=== PATIENT | male | born 1970 | race Caucasian/White ===

== ENCOUNTER 2023-01-10 20:32 | Emergency (ER) | payer BC, MEDICAID, SELFPAY ==
[2023-01-10 20:36] VITALS: BP 104/73; PULSE 105; RESP 18; TEMP 36.4; O2SAT 99; BMI 18.3
--- NOTE | 2023-01-10 21:42 | CTR_ITS ---
PROCEDURE INFORMATION: Exam: CT Head Without Contrast Exam date and time: 01/10/2023 10:01 PM Age: 53 years old Clinical indication: Pain; Headache not specified; Additional info: Headahe HX of bleed TECHNIQUE: Imaging protocol: Computed tomography of the head without contrast. Radiation optimization: All CT scans at this facility use at least one of these dose optimization techniques: automated exposure control; mA and/or kV adjustment per patient size (includes targeted exams where dose is matched to clinical indication); or iterative reconstruction. REPORTING DATA: Count of CT and Cardiac NM exams in prior 12 months: This patient has received 0 known CTs and 0 known cardiac nuclear medicine studies in the 12 months prior to the current study. COMPARISON: No relevant prior studies available. RADIATION DOSE METRICS: Total DLP (mGy-cm): 1269.78 FINDINGS: Brain: Normal. No hemorrhage. Unremarkable white matter. No mass effect. Cerebral ventricles: No ventriculomegaly. Paranasal sinuses: Visualized sinuses are unremarkable. No fluid levels. Mastoid air cells: Visualized mastoid air cells are well aerated. Bones/joints: Unremarkable. No acute fracture. Soft tissues: Unremarkable. CT/CT head wo con* [id number] IMPRESSION: No acute intracranial abnormality.
--- NOTE | 2023-01-10 21:42 | XRR_ITS ---
PROCEDURE INFORMATION: Exam: XR Chest Exam date and time: 01/10/2023 10:00 PM Age: 53 years old Clinical indication: Pain; Chest pressure; Additional info: Cp TECHNIQUE: Imaging protocol: Radiologic exam of the chest. Views: 1 view. COMPARISON: No relevant prior studies available. FINDINGS: Lungs: Unremarkable. No consolidation. Pleural spaces: Unremarkable. No pleural effusion. No pneumothorax. Heart/Mediastinum: Unremarkable. No cardiomegaly. Bones/joints: Unremarkable. XR/XR chest 1V portable [id number] IMPRESSION: No acute findings.
--- NOTE | 2023-01-10 21:42 | ECG_ITS ---
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 Measurements Intervals [place] Rate: 80 P: 62 MS: 162 QRS: 63 QRSD: 105 T: 77 QT: 394 QTc: 457 Interpretive Statements SINUS RHYTHM POSSIBLE INFERIOR MYOCARDIAL INFARCTION , PROBABLY OLD [30 ms Q WAVE IN II/aVF] Compared to ECG 07/06/2015 12:25:45 Myocardial infarct finding now present Left ventricular hypertrophy no longer present ST (T wave) deviation no longer present Electronically Signed On 01-10-2023 22:35:14 CDT by Wicho Schilling M.D. [email or web address] [email or web address] [email or web address] st[email or web address].Quora/store/OM/[id number]
[2023-01-10 21:55] LABS: Basophils # 0.1 10^3/uL (0.0-0.1); Basophils % 0.8 %; Eosinophils % 0.4 %; Hematocrit 33.9 % (42.0-52.0); Hemoglobin 11.3 g/dL (11.7-16.6); Lymphocytes # 2.8 10^3/uL (0.8-4.8); Lymphocytes % 30.3 %; Mean Corpuscular HGB Conc 33.3 g/dL (30.0-36.0); Mean Corpuscular Volume 102.1 fl (80-94); Mean Platelet Volume 12.9 fL (7.4-10.4); Monocytes # 0.8 10^3/uL (0.2-0.9); Monocytes % 8.7 %; Neutrophils % 59.3 %; Nucleated Red Blood Cells % 0 %; Platelet Count 123 10^3/cmm (130-400); Red Blood Count 3.32 10^6/uL (4.1-5.3); Red Cell Distribution Width 13.1 % (12.1-15.1); White Blood Count 9.3 10^3/uL (4.0-10.0)
[2023-01-10 21:56] VITALS: BP 108/70; PULSE 85; RESP 16; O2SAT 98
[2023-01-10 22:13] LABS: Troponin(5th) Baseline 6 ng/L (0-15)
[2023-01-10 22:29] LABS: Add Urine Microscopic? NO; Charge for UA Resulting for Rev
[2023-01-10 22:46] LABS: INR 0.97 (0.8-1.2)
[2023-01-10 22:51] LABS: Bilirubin Urine Neg (Negative); Blood Urine Neg (Negative); Glucose Urine UA Norm (Normal); Ketones Urine Negative (Negative); Leukocyte Esterase Urine Negative (Negative); Nitrate Urine Negative (Negative); Protein Urine Neg (Negative); Specific Gravity, Urine 1.005 (1.005-1.030); Urine Appearance Clear (CLEAR); Urine Color Colorless (Yellow); Urobilinogen Urine Neg (Negative); pH Urine 5 (5-7)
[2023-01-10 22:58] LABS: Alcohol Level 243 mg/dL (0-10); NT Pro B Type Natriuretic Pept 294 pg/mL (0-125)
[2023-01-10 23:06] VITALS: BP 107/81; PULSE 87; RESP 18; O2SAT 97
--- NOTE | 2023-01-10 23:42 | ECG_ITS ---
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 Measurements Intervals [place] Rate: 91 P: 62 MN: 156 QRS: 56 QRSD: 101 T: 78 QT: 359 QTc: 444 Interpretive Statements SINUS RHYTHM POSSIBLE LEFT ATRIAL ENLARGEMENT [-0.1mV P-WAVE IN V1/V2] POSSIBLE INFERIOR MYOCARDIAL INFARCTION , PROBABLY OLD [30 ms Q WAVE IN II/aVF] Compared to ECG 07/06/2015 12:25:45 Myocardial infarct finding now present Left ventricular hypertrophy no longer present ST (T wave) deviation no longer present Electronically Signed On 01-11-2023 11:32:39 CDT by Wicho Schilling M.D. [id number] f
[2023-01-10 23:57] LABS: Alanine Aminotransferase 47 U/L (0-41); Alkaline Phosphatase 269 U/L (40-130); Aspartate Amino Transferase 131 U/L (0-40); Blood Urea Nitrogen 4 mg/dL (6-20); Calcium 7.9 mg/dL (8.5-10.5); Carbon Dioxide 19 mmol/L (22-29); Chloride 102 mmol/L (98-107); Globulin 2.7 g/dL (1.3-4.6); Glomerular Filtration Rate 173.9 mL/min (90-130); Glucose 83 mg/dL (65-115); Osmolality Calculated 282 mOsm/kg (285-295); Sodium 138 mmol/L (136-145); Total Bilirubin 0.9 mg/dL (0.15-1.2); Total Protein 5.7 g/dL (6.6-8.7)
[2023-01-11 00:14] LABS: Anion Gap 20.4 (5-19); Potassium 3.4 mmol/L (3.5-5.1)
[2023-01-11 00:33] VITALS: BP 110/83; PULSE 82; RESP 19; O2SAT 100
[2023-01-11 00:33] LABS: Troponin 5 2HR Delta 0 ABS# (0-10)
--- NOTE | 2023-01-12 09:52 | ED_ITS ---
HPI - Chest Pain General: Chief Complaint: Chest Pain Stated Complaint: back pain, n/v Time Seen by Provider: 01/10/23 21:28 Source: patient History of Present Illness: 53 yo male with a history of alcohol use, and evidently a leaky heart valve presents with multiple symptoms. These include chest discomfort, sob, nausea, vomiting, chronic back pain, and lower extremity edema. He has been to ERs in [place] and [place] with similar complaints. He also complains of a headache, and evidently has a history of a brain bleed . MD complaint: chest pain Pertinent past history: other Onset (ago): week(s) Timing of current episode: episodic Prior episodes: Yes Onset: during rest Pain location: other Pain radiation: other Quality: aching Relieving factors: nothing Exacerbating factors: nothing Associated symptoms: Reports abdominal pain, dyspnea, nausea and vomiting; Deny fever(s) or palpitations Review of Systems Const: Denies: fever(s) Eyes: Denies: change in vision ENMT: Denies: throat pain Card: Reports: chest pain; Denies: palpitations Resp: Reports: dyspnea; Denies: productive cough, non-productive cough or wheezing GI: Reports: abdominal pain, nausea and vomiting; Denies: diarrhea or hematochezia Skin/Breast: Denies: rash Neuro: Reports: headache(s); Denies: weakness in extremities, dizziness or confusion Physical Exam Const: COMMON NORMALS: no acute distress GENERAL APPEARANCE: cooperative; not ill appearing and not frail appearing HENMT: COMMON NORMALS: normocephalic, atraumatic and Normal external nose present HEAD & SCALP: normocephalic and atraumatic FACE & SINUS: normal facial exam and face symmetric NOSE: Normal external nose present Eye: COMMON NORMALS: Equal, round and reactive pupils present and EOMs intact bilaterally PUPIL: Yes Equal, round and reactive pupils present Neck/C-Spine: GENERAL: Yes trachea midline Chest: CHEST: Yes Symmetrical chest wall rise Resp: COMMON NORMALS: normal respiratory effort, No retractions, No use of accessory muscles and clear to auscultation bilaterally AUSCULTATION: clear to auscultation bilaterally Cardio: COMMON NORMALS: regular rate and regular rhythm RATE: regular rate RHYTHM: regular rhythm GI: COMMON NORMALS: Normal to inspection, nondistended, normoactive bowel sounds present Extremity: GENERAL: Yes edema (1+) Neuro: JLOIE COMA SCALE: document GCS findings [place] coma scale eye opening: Spontaneous Jolie coma scale verbal response: Orientated Jolie coma scale motor response: Obey commands Jolie coma scale total score: 15 SPEECH: abnormal speech Details: slurred SENSORY EXAM: Yes extremities (intact) Psych: COMMON NORMALS: speech normal SPEECH: Yes normal speech Skin: COMMON NORMALS: no rashes or lesions noted GENERAL SKIN EXAM: no rashes or lesions noted Course Vital Signs: Vital signs: Vital Signs Temperature 97.5 F L 01/10/23 20:36 Pulse Rate 82 01/11/23 00:33 Respiratory Rate 19 H 01/11/23 00:33 Blood Pressure 110/83 01/11/23 00:33 Pulse Oximetry 100 01/11/23 00:33 Oxygen Delivery Me thod 01/10/23 23:06 MDM - Chest Pain Medical Decision Making This patient is intoxicated on alcohol, although mostly functional. I supect most of these chronic, non-acute problems are related to alcoholic liver disease as opposed to an acute problem. Head CT is performed because of his complain of headache with history of intr acranial hemorrhage. It is negative. Is EKG is not remarkable. His troponins remain negative. His BNP is not elevated. Chest X-ray is not acute. Is bicarbonate level is low indicating dehydration, likely from alcohol use. Renal function is normal. Urinanalysis is negative. His alcohol level was 243 which is significant. He was counseled on mild thrombocytopenia, hypoalbuminemia likely related to alcohol use. He was encouraged to not drink alcohol, as this is likely the source of his lower extremity edema. I suspect this counseling will be lost on him. He was encouraged to follow up with his physician in [place] related to his chronic problems. For the lower extremity edema, he'll be placed on lasix. He was encouraged to use compression stockings. As his potassium is already mildly low, we will supplement potassium with the furosemide. Lab Data 01/10/23 21:35 01/10/23 23:32 Radiology Impressions Chest X-Ray 01/10/23 21:42 IMPRESSION: No acute findings. Head CT 01/10/23 21:42 IMPRESSION: No acute intracranial abnormality. Laboratory Results WBC 9.3 10^3/uL (4.0-10.0) 01/10/23 21:35 RBC 3.32 10^6/uL (4.1-5.3) L 01/10/23 21: Hgb 11.3 g/dL (11.7-16.6) L 01/10/23 21: Hct 33.9 % (42.0-52.0) L 01/10/23 21: MCV 102.1 fl (80-94) H 01/10/23 21: MCH 34.0 pg (28.0-34.0) 01/10/23 21: MCHC 33.3 g/dL (30.0-36.0) 01/10/23 21: RDW 13.1 % (12.1-15.1) 01/10/23: Plt Count 123 10^3/cmm (130-400) L 01/10/23 21: MPV 12.9 fL (7.4-10.4) H 01/10/23 21: Neut % (Auto) 59.3 % 01/10/23 21: Lymph % (Auto) 30.3 % 01/10/23 21:35 [place] % (Auto) 8.7 % 01/10/23 21: Eos % (Auto) 0.4 % 01/10/23 21: Baso % (Auto) 0.8 % 01/10/23: Neut # (Auto) 5.50 10^3/uL (1.8-7.7) 01/10/23 21: Lymph # (Auto) 2.8 10^3/uL (0.8-4.8) 01/10/23 21: [place] # (Auto) 0.8 10^3/uL (0.2-0.9) 01/10/23 21: Eos # (Auto) 0.0 10^3/uL (0.0-0.8) 01/10/23 21: Baso # (Auto) 0.1 10^3/uL (0.0-0.1) 01/10/23 21: Nucleated RBC % (auto) 0 % 01/10/23 21: Nucleated RBCs # 0.0 /100WBC 01/10/23 21: PT 13.20 SECONDS (12.1-14.9) 01/10/23 22:22 INR 0.97 (0.8-1.2) 01/10/23 22:22 Sodium 138 mmol/L (136-145) 01/10/23 23:32 Potassium 3.4 mmol/L (3.5-5.1) L 01/10/23 23:32 Chloride 102 mmol/L (98-107) 01/10/23 23:32 Carbon Dioxide 19 mmol/L (22-29) L 01/10/23 23:32 Anion Gap 20.4 (5-19) H 01/10/23 23:32 BUN 4 mg/dL (6-20) L 01/10/23 23:32 Creatinine 0.5 mg/dL (0.7-1.2) L 01/10/23 23:32 GFR Calculation 173.9 mL/min (90-130) H 01/10/23 23: Glucose 83 mg/dL (65-115) 01/10/23 23:32 Calculated Osmolality 282 mOsm/kg (285-295) L 01/10/23 23: Calcium 7.9 mg/dL (8.5-10.5) L 01/10/23 23:32 Total Bilirubin 0.9 mg/dL (0.15-1.2) 01/10/23 23:32 AST 131 U/L (0-40) H 01/10/23 23:32 ALT 47 U/L (0-41) H 01/10/23 23:32 Alkaline Phosphatase 269 U/L (40-130) H 01/10/23 23:32 Troponin T Baseline 6 ng/L (0-15) 01/10/23 21:35 Troponin T 120 Minute 6.00 ng/L (0-15) 01/10/23 23:32 Delta Troponin T 0 ABS# (0-10) 01/10/23 23:32 NT-Pro-B Natriuret Pep 294 pg/mL (0-125) H 01/10/23 22:22 Total Protein 5.7 g/dL (6.6-8.7) L 01/10/23 23:32 Albumin 3.0 g/dL (3.5-5.2) L 01/10/23 23:32 Globulin 2.7 g/dL (1.3-4.6) 01/10/23 23:32 Urine Color Colorless (Yellow) 01/10/23 22:22 Urine Appearance Clear (CLEAR) 01/10/23 22:22 Urine pH 5 (5-7) 01/10/23 22:22 Ur Specific [place] 1.005 (1.005-1.030) 01/10/23 22:22 Urine Protein Neg (Negative) 01/10/23 22:22 Urine Glucose (UA) Norm (Normal) 01/10/23 22:22 Urine Ketones Negative (Negative) 01/10/23 22:22 Urine Blood Neg (Negative) 01/10/23 22:22 Urine Nitrate Negative (Negative) 01/10/23 22:22 Urine Bilirubin Neg (Negative) 01/10/23 22:22 Urine Urobilinogen Neg mg/dL (Negative) 01/10/23 22:22 Ur Leukocyte Esterase Negative (Negative) 01/10/23 22:22 Ethyl Alcohol 243 mg/dL (0-10) H 01/10/23 22:22 Discharge Plan Discharge Patient Disposition: Home Clinical Impression: Hypoalbuminemia, Thrombocytopenia Condition: Stable Prescriptions: New Lasix 20 mg tablet 20 mg PO DAILY Qty: 30 0RF potassium chloride 20 mEq tablet extended release 20 meq PO DAILY Qty: 30 0RF Discharge Orders: Discharge ED (Routine); Ordered 01/11/23 Ordered By: Nikhil Clifton Referrals: Briana Blankenship NP [Primary Care Provider] - 4-7 days Activity Restrictions/Additional Instructions: Return for fever, worsening mental status, shortness of breath, other concerning symptoms. See your doctor this week. Medication as directed. Coding Level of Care Code ED [employer] Custodian for Ifeanyi Perez
== END 2023-01-11 00:34 | disposition home or self-care (01) ==
PROVIDERS: Emergency Provider Emergency Medicine; PCP Nurse Practitioner Family
DX: E88.09 Other disorders of plasma-protein metabolism, not elsewhere classified (principal); D69.6 Thrombocytopenia, unspecified
CPT/HCPCS: 70450; 71045; 80053; 80307; 81003; 83880; 84484; 85025; 85610; 93005; 99285

== ENCOUNTER 2023-02-25 08:53 | Outpatient (CLI) | payer BC, MEDICAID, SELFPAY ==
--- NOTE | 2023-02-25 | CT_ITS ---
WS: [id number] CT CHEST TECHNIQUE: Noncontrast CT of the chest with coronal and sagittal reformatted images. CLINICAL INFORMATION: UNEXPLAINED WEIGHT LOSS, LOWER EXT EDEMA COMPARISON: None. DLP: 788.[address] scans at [facility] use at least one of these dose optimization techniques: automated e xposure control; mA and/or kV adjustment per patient size (includes targeted exams where dose is matc hed to clinical indication); or iterative reconstruction. FINDINGS: Lungs are well aerated. Slight fibrosis in the lung apices. No focal pneumonia or pleural f luid. Subsegmental atelectasis LEFT lower lobe. Normal caliber thoracic aorta. Vascular calcification. Coronary calcification. No mediastinal or senthil r lymphadenopathy. No axillary lymphadenopathy. Adrenal glands are normal. Small amount of perihepatic ascites. LEFT corrina al cysts which appear hemorrhagic. Small esophageal hiatal hernia. Normal visualized thoracic spine. CT/CT chest wo con [id number] IMPRESSION: No acute chest findings.
--- NOTE | 2023-02-25 09:04 | USCV_ITS ---
Jus Trujillo Age: 53 Gender: M : 1970 Exam Date: 02/25/2023 09:18 Ordering Phys: Briana Blankenship NP Technologist: [place] [facility] [place]: cp BP: 140 / 80 HR: 62 Rhythm: Sinus Technical Quality: Adequate MEASUREMENTS (Male / Female) Normal Values 2D ECHO LV Diastolic Diameter PLAX 4.3 cm 4.2 - 5.9 / 3.9 - 5.3 cm LV Systolic Diameter PLAX 2.8 cm IVS Diastolic Thickness 1.1 cm 0.6 - 1.0 / 0.6 - 0.9 cm IVS Systolic Thickness 1.4 cm LVPW Diastolic Thickness 1.1 cm 0.6 - 1.0 / 0.6 - 0.9 cm LVPW Systolic Thickness 1.8 cm LVOT Diameter 2.0 cm LV Ejection Fraction 2D Teich 62.5 % LV Ejection Fraction MOD 2C 77.3 % LV Ejection Fraction 2C AL 77.0 % LA Diameter 3.8 cm Aorta at Sinotubular Diameter 3.7 cm IVC Diameter 0.9 cm M-MODE Aortic Annulus Diameter 4.3 cm LA Ao Ratio MM 0.9 MV E Point Septal Separation 0.5 cm DOPPLER AV Peak Velocity 111.0 cm/s LVOT Peak Velocity 101.0 cm/s AV Area Cont Eq vti 3.3 cm squared AV Area Cont Eq pk 2.9 cm squared MV Area PHT 5.0 cm squared Mitral E to A Ratio 1.6 MV E' Velocity 65.4 cm/s Mitral E to MV E' Ratio 11.1 Mitral E to LV E' Lateral Ratio 13.7 Mitral E to LV E' Septal Ratio 9.4 TR Peak Velocity 215.0 cm/s TR Peak Gradient 18.5 mmHg TV Peak E Velocity 105.0 cm/s Right Atrial Pressure 3.0 mmHg Pulmonary Artery Systolic Pressu 21.5 mmHg RV Acceleration Time 0.2 s FINDINGS Left Ventricle Left ventricle is normal in size. LV systolic function is normal with EF of 55 to 60%. No regional wall motion abnormalities are seen. Right Ventricle Normal in size and function Right Atrium Normal in size Left Atrium Normal in size Mitral Valve Structurally normal mitral valve. Aortic Valve Structurally normal aortic valve. No significant stenosis or regurgitation seen. Tricuspid Valve Mild tricuspid regurgitation. Pulmonary artery systolic pressure is normal. Pulmonic Valve Not well-visualized. Pericardium Normal Aorta Mildly dilated ascending aorta IVC Appears to be normal CONCLUSIONS LV systolic function is normal with EF of 55 to 60%. Mild tricuspid regurgitation Mildly dilated ascending aorta. No comparison studies are available Wicho Schilling MD (Electronically Signed) Final Date: 06 Mar 2023 13:58 S
--- NOTE | 2023-02-25 09:05 | CT_ITS ---
WS: [id number] CT ABDOMEN PELVIS TECHNIQUE: Noncontrast CT of the abdomen and contrast-enhanced CT of the abdomen and pelvis with tamera nal and sagittal reformatted images. CLINICAL INFORMATION: ABNORMAL LEVELS OF OTHER SERUM ENZYMES COMPARISON: Ultrasound 2015 DLP: 788.[address] scans at [facility] use at least one of these dose optimization techniques: automated e xposure control; mA and/or kV adjustment per patient size (includes targeted exams where dose is matc hed to clinical indication); or iterative reconstruction. FINDINGS:Ill-defined eccentric soft tissue thickening with luminal narrowing involving the distal sto mach in the antrum and pylorus. Wall thickening with associated calcifications. Findings nonspecific but neoplasm not excluded and recommend further evaluation with endoscopy. Mild diffuse fatty infiltration liver. A few tiny hepatic cysts. Small amount of perihepatic ascites. Normal spleen. Small esophageal hiatal hernia. Slight atelectasis in the lung bases. Normal pancreat ic parenchymal enhancement. Adrenal glands are normal. Normal portal vein and splenic vein. Tiny gall bladder wall polyp measuring 5 mm. This can be followed up with ultrasound. Normal caliber abdominal aorta. Celiac and SMA are patent. Adrenal glands are normal. No hydronephros is in either kidney. Numerous bilateral renal cysts some appear proteinaceous or hemorrhagic. Large L EFT lower pole renal cyst measuring 5.2 CM. Renal cysts progressed compared to 2015 ultrasound Small amount of ascites in the RIGHT pericolic gutter. Small amount of ascites in the pelvis. Sigmoid diverticuli. No evidence of acute diverticulitis. Normal appendix in the RIGHT lower quadrant. Small fat-containing LEFT inguinal hernia. CT/CT abdomen pelvis wo/w [id number] IMPRESSION: 1. Ill-defined eccentric soft tissue thickening with luminal narrowing involvi ng the distal stomach in the antrum and pylorus. Wall thickening with associate d calcifications. Findings nonspecific but neoplasm not excluded. Recommend fur ther evaluation with endoscopy. 2. Mild diffuse fatty infiltration liver with mild perihepatic ascites. Recomm end correlation with liver function tests. 3. Small gallbladder wall polyp measuring 5 mm. This can be further evaluated with ultrasound. 4. No hydronephrosis in either kidney. 5. Bilateral renal cysts some of which are too small to characterize. Largest renal cyst lower pole LEFT kidney measuring 5.1 cm. 6. Normal caliber abdominal aorta. 7. Small amount of fluid or ascites in the pelvis. 8. No abdominal or pelvic lymphadenopathy. 9. Small esophageal hiatal hernia.
[2023-02-25] MEDS: iohexol 350 mg/mL 500 mL Btl (per mL) IV (09:30)
== END 2023-02-25 08:54 | disposition home or self-care (01) ==
PROVIDERS: PCP Nurse Practitioner Family; Visit Provider Nurse Practitioner Family
DX: R74.8 Abnormal levels of other serum enzymes (principal); D69.6 Thrombocytopenia, unspecified; R63.4 Abnormal weight loss; M79.89 Other specified soft tissue disorders; R93.5 Abnormal findings on diagnostic imaging of other abdominal regions, including retroperitoneum; K31.89 Other diseases of stomach and duodenum; K76.0 Fatty (change of) liver, not elsewhere classified; K82.4 Cholesterolosis of gallbladder; Q61.02 Congenital multiple renal cysts; K44.9 Diaphragmatic hernia without obstruction or gangrene; R18.8 Other ascites
CPT/HCPCS: 71250; 74178; 93306; Q9967

== ENCOUNTER 2023-03-19 18:44 | Emergency (ER) | payer BC, MEDICAID, SELFPAY ==
[2023-03-19] VITALS (11 sets, daily range): BP systolic 109–131; BP diastolic 70–84; PULSE 73–89; RESP 14–22; O2SAT 91–99
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
--- NOTE | 2023-03-19 19:20 | PC.NURSE ---
Pt IV site prepped with betadine swab.
[2023-03-19 19:26] LABS: Basophils # 0.1 10^3/uL (0.0-0.1); Basophils % 0.8 %; Eosinophils # 0.2 10^3/uL (0.0-0.8); Eosinophils % 2.5 %; Hematocrit 41.1 % (42.0-52.0); Hemoglobin 13.2 g/dL (11.7-16.6); Lymphocytes # 2.4 10^3/uL (0.8-4.8); Lymphocytes % 39.6 %; Mean Corpuscular HGB Conc 32.1 g/dL (30.0-36.0); Mean Corpuscular Hemoglobin 32.4 pg (28.0-34.0); Mean Platelet Volume 11.6 fL (7.4-10.4); Monocytes # 0.4 10^3/uL (0.2-0.9); Monocytes % 7.1 %; Neutrophils % 49.8 %; Nucleated Red Blood Cells % 0 %; Platelet Count 159 10^3/cmm (130-400); Red Blood Count 4.07 10^6/uL (4.1-5.3); Red Cell Distribution Width 13.6 % (12.1-15.1)
[2023-03-19] MEDS: iohexol 350 mg/mL 500 mL Btl (per mL) IV (19:44)
[2023-03-19 20:08] LABS: Alanine Aminotransferase 13 U/L (0-41); Albumin Level 3.9 g/dL (3.5-5.2); Alkaline Phosphatase 93 U/L (40-130); Anion Gap 15.8 (5-19); Aspartate Amino Transferase 35 U/L (0-40); Blood Urea Nitrogen 4 mg/dL (6-20); Calcium 8.7 mg/dL (8.5-10.5); Carbon Dioxide 24 mmol/L (22-29); Chloride 111 mmol/L (98-107); Globulin 2.8 g/dL (1.3-4.6); Glomerular Filtration Rate 140.9 mL/min (90-130); Glucose 82 mg/dL (65-115); Osmolality Calculated 300 mOsm/kg (285-295); Potassium 3.8 mmol/L (3.5-5.1); Sodium 147 mmol/L (136-145); Total Bilirubin 0.2 mg/dL (0.15-1.2); Total Protein 6.7 g/dL (6.6-8.7)
[2023-03-19 20:10] LABS: Alcohol Level 384 mg/dL (0-10)
[2023-03-20 09:33] LABS: Glucose Point of Care 98 mg/dL (70-110)
== END 2023-03-19 22:44 | disposition home or self-care (01) ==
PROVIDERS: Emergency Provider Emergency Medicine; PCP Nurse Practitioner Family
DX: Z04.1 Encounter for examination and observation following transport accident (principal); F10.129 Alcohol abuse with intoxication, unspecified; Y90.8 Blood alcohol level of 240 mg/100 ml or more; V89.2XXA Person injured in unspecified motor-vehicle accident, traffic, initial encounter
CPT/HCPCS: 36416; 70450; 71260; 72125; 74177; 80053; 80307; 82962; 85025; 99285; Q9967

== ENCOUNTER 2023-05-05 11:11 | Outpatient (CLI) | payer OTHER, SELFPAY ==
--- NOTE | 2023-05-05 11:18 | XR_ITS ---
WS: [id number] Exam: XR lumbar spine 2-3V* [id number] Date/Time of Exam: 05/05/2023 11:28 AM Reason For Exam: BACK PAIN No fracture or dislocation. Disc degeneration at L5-S1. Mild spondylosis of L5 and S1. The remainder of the lumbar spine is normal. XR/XR lumbar spine 2-3V* [id number] IMPRESSION: 1. Degenerative disc change and spondylosis at L5-S1 as noted above. 2. No other significant finding.
--- NOTE | 2023-05-05 11:19 | XR_ITS ---
WS: [id number] Exam: XR ankle LT 2V [id number] Date/Time of Exam: 05/05/2023 11:28 AM Reason For Exam: PAIN There is plate and screw fixation involving healed fractures of the posterior tibial shelf and medial malleolus. Alignment is satisfactory. There is also a healed fracture of the lower diaphysis of the fibula with plate and screw fixation. No other sign of fracture. The ankle mortise is intact. XR/XR ankle LT 2V [id number] IMPRESSION: 1. Healed fractures with internal fixation involving the lower tibia and fibula as detailed above. 2. No acute fracture identified.
== END 2023-05-05 11:12 | disposition home or self-care (01) ==
LOC: RAD 11:12
PROVIDERS: PCP Nurse Practitioner Family; Visit Provider Dermatology
DX: Z02.71 Encounter for disability determination (principal)
CPT/HCPCS: 72100; 73600